=== PATIENT | female | born 1990 | race African-American/Black ===

== ENCOUNTER 2022-10-26 00:54 | Emergency (ER) | payer SELFPAY ==
[2022-10-26] MEDS ORDERED: Cyclobenzaprine 10 MG Tab PO ONE (00:55)
[2022-10-26] MEDS ORDERED: Acetaminophen/HYDROcodone 325-5 MG Tab PO ONE (00:55)
[2022-10-26] MEDS ORDERED: cloNIDine 0.1 MG Tab PO ONE (01:20)
== END 2022-10-26 02:13 | disposition home or self-care (01) ==
LOC: FB.ED 00:54
DX: M54.6 Pain in thoracic spine (principal); I10 Essential (primary) hypertension; E66.9 Obesity, unspecified; Z68.44 Body mass index [BMI] 60.0-69.9, adult
CPT/HCPCS: 99283; A9270-GY